=== PATIENT | female | born 1970 | race Caucasian/White ===

== ENCOUNTER 2023-03-21 20:14 | Emergency (ER) | payer BC, OTHER ==
--- NOTE | 2023-03-21 20:22 | ERPHSYRPT ---
- History of Present Illness Time Seen by Provider: 03/21/23 20:22 Historian: patient Exam Limitations: no limitations Physician History: This is a 52-year-old white female patient who presents with sharp, stabbing right flank pain and right lower abdominal pain that has been present for approximately 2 to 3 months. Pain was worsening yesterday and even worse at 1300 today. Patient is scheduled to see a specialist the end of March 2023. They are unsure which type of specialist she is seen. Patient has a history of gastroesophageal reflux disease. She is on Bentyl medication and Zofran. Timing/Duration: today Abdominal Pain Onset Location: RLQ, flank (Right) Pain Radiation: flank (Right) Severity of Pain-Max: moderate Severity of Pain-Current: moderate Modifying Factors: Improves With: nothing Associated Symptoms: loss of appetite, nausea, No chest pain, No fever/chills, No shortness of breath Previous symptoms: same symptoms as today (But not as severe as today), recently seen Allergies/Adverse Reactions: No Known Drug Allergies Allergy (Verified 03/21/23 20:29) Home Medications: Dicyclomine HCl 20 mg [Bentyl 20 mg] 1 tab PO QID 03/21/23 [History] Omeprazole 20 mg PO DAILY 03/21/23 [History] Ondansetron [Ondansetron Odt ] 4 mg SL Q6H PRN 03/21/23 [History] Tramadol HCl 50 mg [Ultram 50 mg] 1 tab PO DAILY PRN 03/21/23 [History] Travel Risk - International Travel Have you traveled outside of the country in past 3 weeks: No - Coronavirus Screening Are you exhibiting any of the following symptoms?: No Close contact with a COVID-19 positive Pt in past 14-21 Days: No - Review of Systems Constitutional: No Symptoms Eyes: No Symptoms Ears, Nose, & Throat: No Symptoms Respiratory: No Symptoms Cardiac: No Symptoms Abdominal/Gastrointestinal: Abdominal Pain (Right lower quadrant), Nausea Genitourinary Symptoms: Flank Pain (Right flank pain) Musculoskeletal: No Symptoms Skin: No Symptoms Neurological: No Symptoms Psychological: No Symptoms Endocrine: No Symptoms Hematologic/Lymphatic: Easy Bruising Immunological/Allergic: No Symptoms All Other Systems: Reviewed and Negative - Past Medical History Pertinent Past Medical History: No - Past Surgical History Past Surgical History: No - Nursing Vital Signs Nursing Vital Signs: Initial Vital Signs Temperature 98.7 F 03/21/23 20:29 Pulse Rate 68 03/21/23 20:29 Respiratory Rate 18 03/21/23 20:29 Blood Pressure 167/89 03/21/23 20:29 O2 Sat by Pulse Oximetry 98 03/21/23 20:29 Pain Scale Pain Intensity 7 - Physical Exam General Appearance: mild distress, alert, anxiety Ears, Nose, Throat Exam: normal ENT inspection, moist mucous membranes Neck Exam: normal inspection, non-tender, supple, full range of motion Respiratory Exam: normal breath sounds, lungs clear, airway intact, No chest tenderness, No respiratory distress Cardiovascular Exam: regular rate/rhythm, normal heart sounds, normal peripheral pulses Gastrointestinal/Abdomen Exam: soft, normal bowel sounds, tenderness (Right lower quadrant), guarding (Right lower quadrant) Pelvic Exam: not done Rectal Exam: not done Back Exam: normal inspection, normal range of motion, CVA tenderness (Right flank), No vertebral tenderness Extremity Exam: normal inspection, normal range of motion, pelvis stable Neurologic Exam: alert, oriented x 3, cooperative, credentialing coordinator II-XII nml as tested, normal mood/affect, nml cerebellar function, nml station & gait, sensation nml Skin Exam: normal color, warm, dry Lymphatic Exam: No adenopathy SpO2 Interpretation: normal O2 Delivery: Room Air - Course Nursing assessment & vital signs reviewed: Yes Ordered Tests: Active Orders 24 hr Category Date Time Status IV Insertion STAT Care 03/21/23 20:44 Active ABDOMEN AND PELVIS W/0 CONTRAS [CT] Stat Exams 03/21/23 20:44 Taken AMYLASE Stat Lab 03/21/23 20:45 Completed BLOOD CULTURE Stat Lab 03/21/23 21:06 Received CBC W DIFF Stat Lab 03/21/23 20:45 Completed CMP Stat Lab 03/21/23 20:45 Completed LIPASE Stat Lab 03/21/23 20:45 Completed Lactic Acid Stat Lab 03/21/23 21:30 Completed Medication Summary Generic Name Dose Route Start Last Admin Trade Name Freq PRN Reason Stop Dose Admin Sodium Chloride 1,000 mls @ 999 mls/hr 03/21/23 22:18 Sodium Chloride 0.9% 1000 Ml IV 03/21/23 23:18 .Q1H1M STA Discontinued Medications Generic Name Dose Route Start Last Admin Trade Name Marcoq PRN Reason Stop Dose Admin Hydromorphone HCl 1 mg 03/21/23 20:44 03/21/23 20:50 Hydromorphone 1 Mg/1ml Inj IV 03/21/23 20:45 1 mg STAT ONE Administration Hydromorphone HCl Confirm 03/21/23 20:48 Hydromorphone 1 Mg/1ml Inj Administered 03/21/23 20:49 Dose 1 mg .ROUTE .STK-MED ONE Sodium Chloride 1,000 mls @ 999 mls/hr 03/21/23 20:44 03/21/23 22:00 Sodium Chloride 0.9% 1000 Ml IV 03/21/23 21:44 Infused .Q1H1M STA Infusion Sodium Chloride Confirm 03/21/23 20:48 Sodium Chloride 0.9% 1000 Ml Administered 03/21/23 20:49 Dose 1,000 mls @ ud .ROUTE .STK-MED ONE Ondansetron HCl 4 mg 03/21/23 20:44 03/21/23 20:50 Ondansetron Hcl 4 Mg/2 Ml Vial IV 03/21/23 20:45 4 mg STAT ONE Administration Ondansetron HCl Confirm 03/21/23 20:47 Ondansetron Hcl 4 Mg/2 Ml Vial Administered 03/21/23 20:48 Dose 4 mg .ROUTE .STK-MED ONE Lab/Rad Data: Laboratory Result Diagrams 03/21/23 20:45 03/21/23 20:45 Laboratory Results 03/21/23 03/21/23 03/21/23 Range/Units 21:30 20:45 20:45 WBC 11.2 H (4.0-10.5) x10^3/uL RBC 4.75 (4.1-5.4) x10^6/uL Hgb 14.2 (12.0-16.0) g/dL Hct 42.4 (35-47) % MCV 89.3 (78-100) fL MCH 29.9 (26-32) pg MCHC 33.5 (32-36) g/dL RDW 13.6 (11.5-14.0) % Plt Count 326 (150-450) x10^3/uL MPV 11.2 H (7.5-11.0) fL Gran % 63.9 (36.0-66.0) % Immature Gran % (Auto) 0.2 (0.00-0.4) % Nucleat RBC Rel Count 0.0 (0.00-0.1) % Eos # (Auto) 0.25 (0-0.5) x10^3/uL Immature Gran # (Auto) 0.02 (0.00-0.03) x10^3u/L Absolute Lymphs (auto) 3.12 (1.0-4.6) x10^3/uL Absolute Monos (auto) 0.59 (0.0-1.3) x10^3/uL Absolute Nucleated RBC 0.00 (0.00-0.01) x10^3u/L Lymphocytes % 28.0 (24.0-44.0) % Monocytes % 5.3 (0.0-12.0) % Eosinophils % 2.2 (0.00-5.0) % Basophils % 0.4 (0.0-0.4) % Absolute Granulocytes 7.12 H (1.4-6.9) x10^3/uL Basophils # 0.05 (0-0.4) x10^3/uL Sodium 136 L (137-145) mmol/L Potassium 3.6 (3.5-5.1) mmol/L Chloride 101 (98-107) mmol/L Carbon Dioxide 26 (22-30) mmol/L Anion Gap 11.7 (5-15) MEQ/L BUN 14 (7-17) mg/dL Creatinine 0.79 (0.52-1.04) mg/dL Estimated GFR 88.8 ML/MIN Glucose 126 H (74-106) mg/dL Lactic Acid 2.2 H (0.4-2.0) Calcium 9.9 (8.4-10.2) mg/dL Total Bilirubin 0.40 (0.2-1.3) mg/dL AST 29 (14-36) U/L ALT 14 (0-35) U/L Alkaline Phosphatase 90 (38-126) U/L Serum Total Protein 7.9 (6.3-8.2) g/dL Albumin 4.6 (3.5-5.0) g/dL Amylase 82 (30-110) U/L Lipase 87 (23-300) U/L Urine Color (YELLOW) Urine Appearance (CLEAR) Urine pH (5-6) Ur Specific [place] (1.005-1.025) Urine Protein POC Urine Protein Conf (Negative) Urine Glucose (UA) Urine Ketones (NEGATIVE) Urine Blood Urine Nitrite (NEGATIVE) Urine Bilirubin (NEGATIVE) Urine Urobilinogen (0-1) mg/dL Ur Leukocyte Esterase Urine Leukocytes (NEGATIVE) U Hyaline Cast (Auto) (0-2) /LPF Urine RBC (0-5) Alex/ul Urine Microscopic RBC (0-5) /HPF Urine Microscopic WBC (0-5) /HPF Ur Epithelial Cells (None Seen) /HPF Urine Bacteria (None Seen) /HPF Urine Culture Reflexed (NO) Urine Glucose (NEGATIVE) mg/dL 03/21/23 Range/Units 20:25 WBC (4.0-10.5) x10^3/uL RBC (4.1-5.4) x10^6/uL Hgb (12.0-16.0) g/dL Hct (35-47) % MCV (78-100) fL MCH (26-32) pg MCHC (32-36) g/dL RDW (11.5-14.0) % Plt Count (150-450) x10^3/uL MPV (7.5-11.0) fL Gran % (36.0-66.0) % Immature Gran % (Auto) (0.00-0.4) % Nucleat RBC Rel Count (0.00-0.1) % Eos # (Auto) (0-0.5) x10^3/uL Immature Gran # (Auto) (0.00-0.03) x10^3u/L Absolute Lymphs (auto) (1.0-4.6) x10^3/uL Absolute Monos (auto) (0.0-1.3) x10^3/uL Absolute Nucleated RBC (0.00-0.01) x10^3u/L Lymphocytes % (24.0-44.0) % Monocytes % (0.0-12.0) % Eosinophils % (0.00-5.0) % Basophils % (0.0-0.4) % Absolute Granulocytes (1.4-6.9) x10^3/uL Basophils # (0-0.4) x10^3/uL Sodium (137-145) mmol/L Potassium (3.5-5.1) mmol/L Chloride (98-107) mmol/L Carbon Dioxide (22-30) mmol/L Anion Gap (5-15) MEQ/L BUN (7-17) mg/dL Creatinine (0.52-1.04) mg/dL Estimated GFR ML/MIN Glucose (74-106) mg/dL Lactic Acid (0.4-2.0) Calcium (8.4-10.2) mg/dL Total Bilirubin (0.2-1.3) mg/dL AST (14-36) U/L ALT (0-35) U/L Alkaline Phosphatase (38-126) U/L Serum Total Protein (6.3-8.2) g/dL Albumin (3.5-5.0) g/dL Amylase (30-110) U/L Lipase (23-300) U/L Urine Color YELLOW (YELLOW) Urine Appearance CLEAR (CLEAR) Urine pH 5.5 (5-6) Ur Specific [place] 1.025 (1.005-1.025) Urine Protein Cancelled POC Urine Protein Conf NEGATIVE (Negative) Urine Glucose (UA) Cancelled Urine Ketones TRACE A (NEGATIVE) Urine Blood Cancelled Urine Nitrite NEGATIVE (NEGATIVE) Urine Bilirubin NEGATIVE (NEGATIVE) Urine Urobilinogen 0.2 (0-1) mg/dL Ur Leukocyte Esterase Cancelled Urine Leukocytes NEGATIVE (NEGATIVE) U Hyaline Cast (Auto) NONE SEEN (0-2) /LPF Urine RBC NEGATIVE (0-5) Alex/ul Urine Microscopic RBC 3-5 (0-5) /HPF Urine Microscopic WBC 0-2 (0-5) /HPF Ur Epithelial Cells None Seen (None Seen) /HPF Urine Bacteria None Seen (None Seen) /HPF Urine Culture Reflexed NO (NO) Urine Glucose NEGATIVE (NEGATIVE) mg/dL - Progress Progress: improved, pain not gone completely Progress Note: 03/21/23 20:56 This patient's medical issue is 1 of moderate complexity. Level complex in the workup performed is based on review of the patient's past medical history, review the patient's medication list, review of patient drug allergy list, history present illness and physical findings on examination. This patient's workup includes placement of intravenous line, urinalysis, CBC, CMP, amylase, lipase, CT scan of the abdomen pelvis without contrast. Will also provide the patient with intravenous Zofran, and intravenous Dilaudid. 03/21/23 22:22 I interpreted the results of the laboratory data. There is no evidence of any acute, emergent medical issue based on the results of the laboratory data. CT scan of the abdomen and pelvis without contrast was interpreted by the radiologist and I reviewed the impression. The impression states no comparison films. There is a normal appendix. There is mild diffuse fecal stasis. Counseled pt/family regarding: lab results, diagnosis, need for follow-up, rad results Medical Desision Making - Independent Historian Additional History obtained from: Spouse - Diagnostic Testing Diagnostic test were ordered, analyzed, and reviewed by me: Yes Radiological Interpretation: Reviewed by me, Teleradiologist Report - Risk of complications Minimal Risk: Minimal risk of morbidity - Departure Departure Disposition: Home Clinical Impression: Abdominal pain Condition: Stable Critical Care Time: No Referrals: MANUEL HERBERT NP [Primary Care Provider] - Follow up/PCP as directed Additional Instructions: Drink plenty of clear liquids before advancing diet. Follow-up with your primary care provider tomorrow morning, 03/22/2023, for further evaluation and management.
[2023-03-21 20:38] LABS: Appearance CLEAR (CLEAR); Bilirubin NEGATIVE (NEGATIVE); Glucose NEGATIVE (NEGATIVE); Ketones TRACE (NEGATIVE); Nitrite NEGATIVE (NEGATIVE); Ph 5.5 (5-6); Protein,Urine Dip NEGATIVE (Negative); RBC NEGATIVE Ery/ul (0-5); Specific Gravity 1.025 (1.005-1.025); Urobilinogen 0.2 mg/dL (0-1)
[2023-03-21 20:42] LABS: Bacteria None Seen /HPF (None Seen); Epithelial Cells None Seen /HPF (None Seen); Hyaline Casts NONE SEEN /LPF (0-2); WBC 0-2 /HPF (0-5)
[2023-03-21 20:43] LABS: ADD URINE CULTURE? NO (NO)
[2023-03-21] MEDS ORDERED: Hydromorphone 1 mg/ml Injection IV ONE ×2 (20:44→22:24)
[2023-03-21] MEDS ORDERED: Zofran 4 MG/2 ML VIAL IV ONE (20:44)
[2023-03-21] MEDS ORDERED: Sodium Chloride 0.9% 1000 ML 1,000 ML IV STA ×2 (20:44→22:18)
[2023-03-21] MEDS ORDERED: Zofran 4 MG/2 ML VIAL ONE (20:47)
[2023-03-21 20:48] VITALS: TEMP 98.7
[2023-03-21] MEDS ORDERED: Hydromorphone 1 mg/ml Injection ONE ×2 (20:48→22:27)
[2023-03-21] MEDS ORDERED: Sodium Chloride 0.9% 1000 ML 1,000 ML ONE ×2 (20:48→22:27)
[2023-03-21 21:13] LABS: Absolute Neutrophil Ct (ANC) 7.12 x10^3/uL (1.4-6.9); BASOPHIL % 0.4 % (0.0-0.4); Basophil (Absolute #) 0.05 x10^3/uL (0-0.4); Eosinophil % 2.2 % (0.00-5.0); Eosinophil (Absolute #) 0.25 x10^3/uL (0-0.5); Hematocrit 42.4 % (35-47); Hemoglobin 14.2 g/dL (12.0-16.0); IMMATURE GRAN # 0.02 x10^3u/L (0.00-0.03); IMMATURE GRAN % 0.2 % (0.00-0.4); Lymphocyte (Absolute #) 3.12 x10^3/uL (1.0-4.6); Mean Cell Volume 89.3 fL (78-100); Mean Corpuscular Hemoglobin 29.9 pg (26-32); Mean Corpuscular Hgb Concent. 33.5 g/dL (32-36); Mean Platelet Volume 11.2 fL (7.5-11.0); Monocyte (Absolute #) 0.59 x10^3/uL (0.0-1.3); Monocytes % 5.3 % (0.0-12.0); Neutrophil % 63.9 % (36.0-66.0); Platelet Count 326 x10^3/uL (150-450); Red Blood Count 4.75 x10^6/uL (4.1-5.4); Red Cell Distribution Width 13.6 % (11.5-14.0); White Blood Count 11.2 x10^3/uL (4.0-10.5)
[2023-03-21 21:28] LABS: ALBUMIN 4.6 g/dL (3.5-5.0); ANION GAP 11.7 MEQ/L (5-15); BILIRUBIN,TOTAL 0.4 mg/dL (0.2-1.3); Calcium 9.9 mg/dL (8.4-10.2); Creatinine 1 0.79 mg/dL (0.52-1.04); EST GLOMERULAR FILTRATION RATE 88.8 ML/MIN; Potassium 3.6 mmol/L (3.5-5.1); Total Protein 7.9 g/dL (6.3-8.2)
[2023-03-21 23:07] VITALS: BP 141/93; PULSE 66; RESP 20; O2SAT 95
--- NOTE | 2023-03-22 08:39 | XRAY ---
Indication: Right lower abdomen/flank pain 2 months. Nausea. Multiple contiguous axial images obtained through the abdomen and pelvis without contrast. Comparison: None Lung bases demonstrates mild dependent atelectasis. No infiltrate or effusion. Heart not enlarged. Noncontrasted stomach and bowel loops appear nonobstructed with normal appearing appendix. Mild diffuse scattered colonic fecal debris throughout. No free fluid/air. Remaining liver, gallbladder, pancreas, spleen, adrenal glands, kidneys, ureters, and bladder are unremarkable for noncontrast exam. Mild scattered aortoiliac calcifications without AAA. Osseous structures intact with minimal levoscoliosis centered at thoracolumbar junction. Small fatty umbilical hernia. Impression: 1. Mild diffuse fecal stasis, small fatty umbilical hernia, mild arteriosclerotic disease, and levoscoliosis. 2. Remaining CT abdomen/pelvis without contrast exam is negative.
== END 2023-03-21 23:19 | disposition home or self-care (01) ==
LOC: ED 20:14
DX: R10.31 Right lower quadrant pain (principal); R10.9 Unspecified abdominal pain; Z79.891 Long term (current) use of opiate analgesic; Z79.899 Other long term (current) drug therapy
CPT/HCPCS: 36000; 36415; 74176; 80053; 81015; 82150; 83605; 83690; 85025; 87040; 96374; 96375; 96376; 99284; J1170; J2405